=== PATIENT | male | born 1960 | race Caucasian/White ===

== ENCOUNTER 2020-08-01 15:30 | Outpatient (CLI) | payer MEDICARE, BC | END 2020-08-01 23:59 | disposition home or self-care (01) | LOC: RAD 15:30 | PROVIDERS: ATTEND Family Medicine | DX: K21.9 Gastro-esophageal reflux disease without esophagitis (principal); R13.12 Dysphagia, oropharyngeal phase; R47.1 Dysarthria and anarthria | CPT/HCPCS: 74230 ==